=== PATIENT | male | born 1955 | race Caucasian/White ===

== ENCOUNTER 2023-06-12 12:50 | Emergency (ER) | payer MEDICARE ==
[~2023-06-12] VITALS: Ht 162.6 cm; Wt 66.7 kg
[2023-06-12 13:01] VITALS: O2SAT 98
[2023-06-12] MEDS ORDERED: ACETAMINOPHEN 325MG TABLET PO ONE (13:15)
[2023-06-12] MEDS ORDERED: LIDOCAINE 5% PATCH TOP SCH (13:15)
[2023-06-12] MEDS ORDERED: KETOROLAC 30MG/ML VIAL IM ONE (13:15)
[2023-06-12] MEDS ORDERED: KETOROLAC 30MG/ML VIAL IM NR (13:53)
[2023-06-12] MEDS ORDERED: LIDO700A15 TP (14:42)
[2023-06-12] MEDS ORDERED: TOPUD MT (14:42)
[2023-06-12 15:51] VITALS: BP 154/77; PULSE 72; RESP 18; TEMP 98.3
== END 2023-06-12 15:55 | disposition home or self-care (01) ==
LOC: ER 13:39
DX: M54.30 Sciatica, unspecified side (principal); I10 Essential (primary) hypertension; E78.00 Pure hypercholesterolemia, unspecified; E11.9 Type 2 diabetes mellitus without complications
CPT/HCPCS: 99283; 96372; J1885

== ENCOUNTER 2024-08-07 17:41 | Emergency (ER) | payer MEDICARE, MEDICAID ==
[~2024-08-07] VITALS: Ht 165.1 cm; Wt 69.0 kg
[~2024-08-07 17:41] MED LIST: LIDO700A15 TP; TOPUD MT
[2024-08-07 17:43] VITALS: O2SAT 97
[2024-08-07 17:48] VITALS: BP 187/62; PULSE 61; RESP 16; TEMP 98; O2SAT 98
[2024-08-07 18:17] LABS: CHLORIDE 109 mEq/L (98-107); POTASSIUM 4.5 mEq/L (3.5-5.1); SODIUM 139 mEq/L (136-145)
[2024-08-07 18:18] LABS: CARBON DIOXIDE 25 mEq/L (21-32)
[2024-08-07 18:19] LABS: BASOPHILS % 0.7 % (0.0-2.0); CALCIUM 9.6 mg/dL (8.7-10.4); HEMATOCRIT. 45.4 % (42.0-52.0); HEMOGLOBIN. 15.6 g/dL (14.0-18.0); LYMPHOCYTES % 25.8 % (20.0-50.0); MEAN CORPUSCULAR HGB CONC 34.3 g/dL (31.0-37.0); MEAN CORPUSCULAR VOLUME 90.2 fL (80.0-94.0); MEAN PLATELET VOLUME 8.3 fl (7.4-10.4); MONOCYTES % 6.9 % (2.0-8.0); NEUTROPHILS % 63.6 % (40.0-76.0); PLATELET 208 x1000/uL (130-400); RED BLOOD CELL COUNT 5.04 mill/uL (4.7-6.1); RED CELL DISTRIBUTION WIDTH 14.1 % (11.6-14.6); WHITE BLOOD COUNT 5.8 x1000/uL (4.5-11.0)
[2024-08-07 18:23] LABS: CREATININE 1.3 mg/dL (0.6-1.3); GLUCOSE 133 mg/dL (70-105)
[2024-08-07 18:24] LABS: TROPONIN I HIGH SENSITIVITY 4 ng/L (3.0-53); UREA NITROGEN BLOOD 23 mg/dL (9-23)
[2024-08-07 18:26] LABS: INR 0.9; PROTHROMBIN TIME 10.3 sec (9.6-11.0)
== END 2024-08-07 20:19 | disposition left against medical advice (07) ==
LOC: ER 17:41 → EDBEDREQ 18:15 → CANBEDREQ 20:00 → ER 20:19
DX: R20.0 Anesthesia of skin (principal); R53.1 Weakness; M79.601 Pain in right arm; E78.00 Pure hypercholesterolemia, unspecified; E11.9 Type 2 diabetes mellitus without complications; I10 Essential (primary) hypertension
CPT/HCPCS: 36415; 71045; 80048; 82962; 84484; 85025; 99284